=== PATIENT | female | born 1970 | race Caucasian/White ===

== ENCOUNTER 2017-06-02 13:30 | Emergency (ER) | payer SELFPAY ==
[2017-06-02 13:31] VITALS: BP 150/103; PULSE 109; RESP 16; TEMP 36.9; O2SAT 96; BMI 36.8
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
--- NOTE | 2017-06-02 14:18 | ED.DEP ---
ED Disposition - Plan for ED Patient: Disposition: Home or Assisted Living Chief Complaint: Dental Referrals: [facility],Out of [Primary Care Provider] - As Needed Additional Instructions: Call and follow-up with your local dentist as needed. Tylenol for pain. Warm salt water gargling for your mouth. Plenty of fluids and rest. Diarrhea should begin improving after you are done with antibiotic. Continue and finish antibiotic therapy.
[2017-06-02] MEDS: HYDROcodone Bitartrate/Apap 5/325 Tablet PO (14:31)
[2017-06-02 14:35] VITALS: BP 144/115; PULSE 78; RESP 18; TEMP 36.9
== END 2017-06-02 14:37 | disposition home or self-care (01) ==
PROVIDERS: Emergency Provider Emergency Medicine
DX: R68.84 Jaw pain (principal); K52.1 Toxic gastroenteritis and colitis; T36.8X5A Adverse effect of other systemic antibiotics, initial encounter; Y92.9 Unspecified place or not applicable; D68.51 Activated protein C resistance; Z98.818 Other dental procedure status; Z79.01 Long term (current) use of anticoagulants; Z79.899 Other long term (current) drug therapy; Z86.718 Personal history of other venous thrombosis and embolism; Z87.442 Personal history of urinary calculi
CPT/HCPCS: 99283